=== PATIENT | male | born 1995 | race African-American/Black ===

== ENCOUNTER 2018-04-24 00:45 | Emergency (ER) | payer SELFPAY ==
[2018-04-24 01:49] LABS: ALT (SGPT) 143 U/L (8-55); AST (SGOT) 82 U/L (5-34); Albumin 4.2 g/dL (3.5-5.0); Alkaline Phosphatase 74 U/L (40-150); Anion Gap 11 mmol/L (10-20); BUN (Urea Nitrogen) 10 mg/dL (8.9-20.6); Bilirubin, Total 1.1 mg/dL (0.2-1.2); Calc. Creatinine Clearance 0 mL/min (70-130); Calcium 9.7 mg/dL (7.8-10.44); Carbon Dioxide 27 mmol/L (22-29); Chloride 105 mmol/L (98-107); Estimated GFR-MDRD Greater than 90; Globulin 3.4 g/dL (2.4-3.5); Glucose 87 mg/dL (70-105); Potassium 3.8 mmol/L (3.5-5.1); Protein, Total 7.6 g/dL (6.0-8.3); Sodium 139 mmol/L (136-145)
[2018-04-24 02:02] LABS: Band 1 % (5-11); Eosinophils 1 % (0-10); Hemoglobin 14.3 g/dL (14.0-18.0); Lymphocytes 55 % (21-51); MDiff Complete? YES; Mean Corpuscular HGB CONC 32.9 g/dL (32.0-36.0); Mean Corpuscular Hemoglobin 28.7 pg (27.0-31.0); Mean Corpuscular Volume 87.2 fL (78.0-98.0); Mean Platelet Volume 6.5 fL (7.4-10.4); Monocytes 9 % (0-10); Neutrophil 29 % (42-75); PLT Morphology Comment Appears Adequate; Platelet Count 241 thou/uL (130-400); RBC Distribution Width 12.6 % (11.5-14.5); RBC Morphology Normal; Reactive Lymphocytes 5 % (0-10); Red Blood Cell (RBC) Count 4.98 mill/uL (4.70-6.10); White Blood Cell (WBC) Count 8.1 thou/uL (4.8-10.8)
== END 2018-04-24 02:39 | disposition left against medical advice (07) ==
LOC: ERS 00:45
DX: Z53.21 Procedure and treatment not carried out due to patient leaving prior to being seen by health care provider (principal)
CPT/HCPCS: 36415; 80053; 85025

== ENCOUNTER 2018-05-02 14:25 | Emergency (ER) | payer SELFPAY ==
[2018-05-02] MEDS ORDERED: Ketorolac Tromethamine 30 MG/ML VIAL ONE (15:22)
== END 2018-05-02 15:41 | disposition home or self-care (01) ==
LOC: ERS 14:25
DX: M70.822 Other soft tissue disorders related to use, overuse and pressure, left upper arm (principal); M70.821 Other soft tissue disorders related to use, overuse and pressure, right upper arm; M79.1 Myalgia; Z71.6 Tobacco abuse counseling; J45.909 Unspecified asthma, uncomplicated; F17.210 Nicotine dependence, cigarettes, uncomplicated
CPT/HCPCS: 96372; 99406; J1885

== ENCOUNTER 2018-05-21 21:23 | Emergency (ER) | payer SELFPAY | END 2018-05-21 22:21 | disposition home or self-care (01) | LOC: ERS 21:23 | DX: M79.89 Other specified soft tissue disorders (principal); J45.909 Unspecified asthma, uncomplicated; F17.210 Nicotine dependence, cigarettes, uncomplicated | CPT/HCPCS: 99283 ==